=== PATIENT | male | born 1995 | race Caucasian/White ===

== ENCOUNTER 2021-02-16 18:19 | Emergency (ER) | payer OTHER ==
[~2021-02-16] VITALS: Ht 170.2 cm; Wt 72.1 kg
[2021-02-16 23:01] VITALS: BP 136/79
== END 2021-02-16 23:01 | disposition home or self-care (01) ==
LOC: M.ERS 18:19
DX: H53.8 Other visual disturbances (principal); H57.89 Other specified disorders of eye and adnexa; Z53.21 Procedure and treatment not carried out due to patient leaving prior to being seen by health care provider